=== PATIENT | male | born 1960 | race Caucasian/White ===

== ENCOUNTER → 2017-03-03 | Outpatient (CLI) | payer OTHER, MEDICAID | LOC: FIMAGING 10:29 | PROVIDERS: ATTEND Internal Medicine Hematology & Oncology | DX: C79.51 Secondary malignant neoplasm of bone (principal); C61 Malignant neoplasm of prostate | CPT/HCPCS: A9503 ==

== ENCOUNTER → 2017-05-22 | Outpatient (CLI) | payer MEDICAID | LOC: BRMIMAGING 11:19 | PROVIDERS: ATTEND Registered Nurse | DX: M25.561 Pain in right knee (principal); M25.562 Pain in left knee; M17.0 Bilateral primary osteoarthritis of knee; M11.262 Other chondrocalcinosis, left knee | CPT/HCPCS: 73562-PO ==

== ENCOUNTER → 2017-08-19 | Outpatient (CLI) | payer MEDICAID | LOC: BRMIMAGING 12:48 | PROVIDERS: ATTEND Physician Assistant | DX: Z09 Encounter for follow-up examination after completed treatment for conditions other than malignant neoplasm (principal); Z98.1 Arthrodesis status; S22.080A Wedge compression fracture of T11-T12 vertebra, initial encounter for closed fracture; C61 Malignant neoplasm of prostate | CPT/HCPCS: 72080-PO ==

== ENCOUNTER → 2017-08-28 | Outpatient (CLI) | payer MEDICAID | LOC: BRMIMAGING 10:53 | PROVIDERS: ATTEND Physician Assistant | DX: C79.51 Secondary malignant neoplasm of bone (principal); Z85.46 Personal history of malignant neoplasm of prostate; Z98.1 Arthrodesis status | CPT/HCPCS: 72100-PO ==

== ENCOUNTER → 2017-11-19 | Outpatient (CLI) | payer OTHER | LOC: BRMIMAGING 12:27 | PROVIDERS: ATTEND Physician Assistant | DX: Z98.1 Arthrodesis status (principal); C79.51 Secondary malignant neoplasm of bone; C61 Malignant neoplasm of prostate | CPT/HCPCS: 72080-PO ==